=== PATIENT | male | born 1990 | race Caucasian/White ===

== ENCOUNTER 2018-04-19 19:50 | Inpatient (IN) | payer MEDICAID, OTHER ==
[~2018-04-19] VITALS: Ht 188 cm; Wt 101.6 kg
[2018-04-19] MEDS ORDERED: HYDROXYZINE HCL50 MG PO (20:07)
--- NOTE | 2018-04-19 22:29 | NUR ---
BROUGHT PT OVER ON STRETCHER FROM ED. PT IS APPROPRIATE AND DOES NOT APPEAR TO BE IN DISTRESS. HE RATES PAIN AT 6/10. RR IS EVEN AND NONLABORED. ORIENTED PT AND CORRECTIONAL OFFICERS TO THE ROOM. CALL LIGHT IS CLOSE.
--- NOTE | 2018-04-19 22:38 | NUR ---
VITALS DONE AND CHARTED. HELPED PT GET A GOWN ON. BEDSIDE TABLE AND CALL LIGHT IN REACH.
--- NOTE | 2018-04-19 23:15 | NUR ---
ADMISSION HX AND ASSESSMENT COMPLETE. PT IS RESTING IN BED AND STATES PAIN IS BETTER NOW. HE DENIES NAUSEA. IV FLUIDS ARE INFUSING AND ABX STARTED IN ED ARE COMPLETE. PT DENIES NEEDS AT THIS TIME. 2 SUPERVISOR LENS GENERATING ARE IN THE ROOM WITH PT AND CALL LIGHT IS CLOSE.
--- NOTE | 2018-04-20 01:05 | NUR ---
PT IS RESTING WITH EYES CLOSED, RR IS EVEN AND NONLABORED. CALL LIGHT IS CLOSE AND 2 CORRECTIONAL OFFICERS ARE IN THE ROOM.
--- NOTE | 2018-04-20 03:09 | NUR ---
VITALS AND I&OS DONE AND CHARTED. INFORMED RN CHRISTOS OF TEMP 100.9 PT NEEDS NOTHING AT THIS TIME.
--- NOTE | 2018-04-20 03:10 | NUR ---
IN ROOM TO ASSESS PT AND ADMINISTER MEDICATIONS. HE REPORT PAIN AT 5/10 AT THIS TIME. IV MORPHINE ADMINISTER. STARTED PRE PROCEDURE CHECKLIST. PT DENIES NEEDS AT THIS TIME. CALL LIGHT IS WITHIN REACH AND 2 CORRECTIONAL OFFICERS ARE IN THE ROOM.
--- NOTE | 2018-04-20 04:29 | NUR ---
PT IS AWAKE IN BED. HE REPORTS PAIN HAS IMPROVED BUT HE STILL HAS SHARP PAINS THAT COME AND GO. HE DENIES FURTHER NEEDS AT THIS TIME. CALL LIGHT IS CLOSE AND 2 CORRECTIONAL OFFICERS ARE IN THE ROOM.
--- NOTE | 2018-04-20 06:38 | NUR ---
SCD'S PUT ON. SWABS GIVEN. PT NEEDS NOTHING MORE AT THIS TIME.
--- NOTE | 2018-04-20 07:02 | NUR ---
ABX INFUSING, PT DENIES FURTHER NEEDS. CALL LIGHT IS CLOSE.
--- NOTE | 2018-04-20 07:38 | NUR ---
PT AWAKE, ALERT AND ORIENTED X3. PT REPORTS PAIN IS IMPROVED IN ABD. TWO CORRECTIONAL OFFICERS IN ROOM. PERSONAL SUPPLIES AND CALL LIGHT WITHIN REACH. NO NEEDS AT THIS TIME.
--- NOTE | 2018-04-20 08:03 | NUR ---
FAXED CLINICALS TO [facility] [phone]. FAX CONFIRMATION RECEIVED 04/20/18 0746AM.
--- NOTE | 2018-04-20 09:30 | NUR ---
PT LEFT UNIT TO SURGERY
--- NOTE | 2018-04-20 12:33 | NUR ---
04/20/18 Venu3 Monik Rangel 1221- PT ARRIVES TO PACU NONAROUSABLE TO NOXIOUS STIMULI. OPA IN PLACE. RESP EVEN AND UNLABORED. OXYGEN SAT 100% ON 10L VIA MASK. 1223- OXYGEN TURNED DOWN TO 6L VIA MASK. OXYGEN SAT 100% ON THIS. RESP EVEN AND UNLABORED. 1228- PT IS MORE AROUSABLE AND TRYING TO TAKE OPA OUT. OPA REMOVED. PT INSTANTLY BACK TO SLEEP. RESP EVEN AND UNLABORED. OXYGEN SAT 100% ON 6L VIA MASK. 1229- PT'S HAND CUFFS REPLACED BY GUARDS X2. CMS INTACT. 1233- STATLOCK PLACED TO PT'S RIGHT LEG TO SECURE HUANG.
--- NOTE | 2018-04-20 12:50 | NUR ---
PT BACK FROM SURGERY. PT AWAKE, ALERT AND ORIENTED X3. PT REPORTING UNCONTROLLED PAIN, LEVEL OF 8/10 ABD PAIN. PT'S VS TAKEN AND ARE STABLE. PT IS ON RA, RESP EVEN AND NON LABORED, OXYGEN SATURATION LEVEL OF 96% AT THIS TIME. TWO CORRECTIONAL OFFICERS IN ROOM WITH PT. ABD INCISIONS X3, COVERED AND DRESSING(S) ARE ALL CDI. ICE OVER INCISIONS. IV FLUIDS STARTED PER DOC ORDER. CLEAR LIQUIDS STARTED; PT TOLERATING WELL. HUANG INTACT, PATENT AND DRAINING APPROPRIATELY, CLR YELLOW URINE. PERSONAL SUPPLIES AND CALL LIGHT WITHIN REACH OF PT. NO NEEDS AT THIS TIME.
--- NOTE | 2018-04-20 13:07 | NUR ---
PT HAS GONE TO SURGERY-LAP APPY. EOCI GUARD IN RM, OTHER GUARD WITH PT TO SURGERY. WILL FOLLOW NEEDED
--- NOTE | 2018-04-20 13:45 | NUR ---
PT RESTING, EYES CLOSED, RESP EVEN AND NON LABORED. PT REPORTS PAIN IMPROVIDED IN ABD, 5/10 LEVEL. PT IS ON RA, 02 SAT LEVEL OF 95%. ABD INCISION CDI. PERSONAL SUPPLIES AND CALL LIGHT WITHIN REACH. NO NEEDS AT THIS TIME. VS STABLE. PERSONAL SUPPLIES AND CALL LIGHT WITHIN REACH.
[2018-04-20] MEDS ORDERED: BUSPIRONE HCL10 MG PO (14:07)
[2018-04-20] MEDS ORDERED: HYDROXYZINE HCL50 MG PO (14:09)
[2018-04-20] MEDS ORDERED: ZYRTEC10 MG PO (14:09)
[2018-04-20] MEDS ORDERED: FLUTICASONE-SA1 EACH INH (14:11)
[2018-04-20] MEDS ORDERED: NAPROSYN500 MG PO (14:11)
--- NOTE | 2018-04-20 14:12 | NUR ---
MED REC COMPLETE
--- NOTE | 2018-04-20 16:19 | NUR ---
Pt awake, sitting semi fowlers in bed. Pt reporting increased abd pain; Admin dilaudid 0.5mg IVP at this time. Ice to abd refreshed. Two correctional officers at bedside with pt. Pt resp even and non labored. Oxygen sat level of 100% on RA. Personal supplies and call light within reach of pt.
--- NOTE | 2018-04-20 18:01 | NUR ---
PT A&OX3. RA. DILAUDID PRN. SAL. D5LR@ 100ML/HR. IV ABX, VS STABLE. 1PA TO BR.
--- NOTE | 2018-04-20 19:09 | NUR ---
IN ROOM FOR REPORT, PT IS AWAKE IN BED AND FEELING NAUSEOUS. PHENERGAN ADMINISTERED AND PT DENIES FURTHER NEEDS. CALL LIGHT IS CLOSE AND 2 CO'S ARE IN THE ROOM.
--- NOTE | 2018-04-20 19:18 | NUR ---
PHENERGAN 12.5MG IVP ADMIN FOR C/O NAUSEA NOT RELIEVED BY ZOFRAN IVP.
--- NOTE | 2018-04-20 20:16 | NUR ---
ASSESSED PT AND ADMINISTERED MEDICATIONS. PT REPORTS PAIN 6/10 AT THIS TIME. HE DID NOT WANT TO TAKE THE BUSPAR BECAUSE HE SAYS IT CAUSES NAUSEA. ABD DRESSINGS ARE CDI WITH SOME SHADOWING ON THE INFERIOR END OF THE MIDLINE INCISION DRESSING. HE HAS FRESH WATER AT BEDSIDE AND DENIES FURTHER NEEDS. CALL LIGHT IS CLOSE AND 2 CORRECTIONAL OFFICERS ARE AT BEDSIDE.
--- NOTE | 2018-04-20 21:21 | NUR ---
VITALS AND I&OS DONE AND CHARTED. FRESH WATER GIVEN. COFFEE GIVEN TO ONE GUARD IN THE ROOM. INFORMED RN CHRISTOS OF TEMP. 100.2 PT NEEDS NOTHING AT THIS TIME.
--- NOTE | 2018-04-20 21:34 | NUR ---
ADMINISTERED NORCO AND IV ABX. FRESH ICEPACK IN PLACE. PT DENIES FURTHER NEEDS AT THIS TIME. CALL LIGHT IS WITHIN REACH.
--- NOTE | 2018-04-20 22:42 | NUR ---
PT STOOD BY SIDE OF BED AND IS BACK IN BED AT THIS TIME. HE DENIES FURTHER NEEDS. CALL LIGHT IS WITHIN REACH.
--- NOTE | 2018-04-20 23:34 | NUR ---
PT RATES PAIN AT 6/10 AT THIS TIME, ADMINISTERED DILAUDID. HE DENIES FURTHER NEEDS. CALL LIGHT IS CLOSE.
--- NOTE | 2018-04-21 00:51 | NUR ---
TAKING OVER CARE OF PT AT THIS TIME, PT AWAKE, C/O MILD ABD PAIN, DENIES NEED FOR PAIN MED AT THIS TIME. ABD DRESSING AND 2 LAP SITES INTACT, ABD SLIGHTLY DISTENDED, DENIES PASSING GAS. F/C PATENT. IVF INFUSING W/O PROBLEMS. 4 PO[address] METAL SHACKLES IN PLACE, 2 EOCI GUARDS IN ROOM.
--- NOTE | 2018-04-21 01:57 | NUR ---
MEDICATED WTIH 1MG IV DIALUDID PER 09/27 ABD PAIN.
--- NOTE | 2018-04-21 03:58 | NUR ---
medicated with 2 Hettick c/o 08/28 abd pain. Abd dressing with light shadowing intact. denies passing gas. Will get up to edgge of bed and walk in room if pt tolerates it. wearing 4point shackles, 2 EOCI guards in room
--- NOTE | 2018-04-21 04:44 | NUR ---
PT STOOD EDGE OF BED AND WALKED TO BR, BACK TO BED, TOLERATED FAIR. FAIR PAIN RELIEF STATED FROM PO MEDS GIVEN EARLIER. BACK TO BED, IVF INFUSING W/O PROBLEMS, NOT PASSING GAS YET
--- NOTE | 2018-04-21 04:49 | NUR ---
PT STOOD EDGE OF BED AND WALKED TO BR, BACK TO BED, TOLERATED FAIR. FAIR PAIN RELIEF STATED FROM PO MEDS GIVEN EARLIER. BACK TO BED, IVF INFUSING W/O PROBLEMS, ABD DRESSING IN PLACE, ABD TENDER,FIRM AT LOWER ABD, NOT PASSING GAS YET. HAS BEEN MEDICATED WITH DILAUDID AND NORCO PER ABD PAIN WITH GOOD TO FAIR PAIN RELIEF. ON ROOM AIR. TOLERATING CLEAR FLUIDS WELL, NO N/V. F/C PATENT, DRAINING LARGE AMOUNTS OF CLEAR YELLOW URINE, WEARING 4 POINT SHACKLES, 2 EOCI GUARDS IN ROOM
--- NOTE | 2018-04-21 05:57 | NUR ---
MEDICATED WTIH DILAUDID 1MG IV C/O ABD PAIN, DRESSING INTACT, NOT PASSING GAS YET. AWAKE, WATCHING TV, IVF INFUSING, NO C/O ADVERSE REACTION TO ABX. IS AT BEDSIDE. F/C PATENT, DRAINING LARGE AMOUNTS OF CLEAR URINE. WATCHING TV, [address], ABLE TO MOVE ALL EXTREMITIES . 2 EOCI GUARDS AT BEDSIDE
--- NOTE | 2018-04-21 06:39 | OR ---
[facility] [address] [place], [place] [address] Signed DATE OF OPERATION: 04/20/2018 SURGEON: Jo Eagle MD PREOPERATIVE DIAGNOSIS: Acute appendicitis. POSTOPERATIVE DIAGNOSIS: Acute perforated retrocecal appendicitis. PROCEDURE: Laparoscopic converted to open appendectomy. ESTIMATED BLOOD LOSS: Minimal. FINDINGS: Nicholas had acutely inflamed and perforated appendix. It was retrocecal, curving posteriorly and laterally. It was densely adherent to the cecal wall and therefore could not be with our laparoscopic instruments. Consequently, he was converted to an open procedure. Even then it was difficult to separate the appendix from the cecum. It took very careful blunt dissection with the help of judicious cautery. INDICATIONS: Nicholas is a 27-year-old gentleman who is quite healthy from [facility] [place]. He has had six days of right lower quadrant abdominal pain. He said it has been getting worse. He has anorexia and nausea. His white count was borderline at 10.7. He is brought to the local emergency room for evaluation. He was tender with rebound in the right lower quadrant. He was tachycardic. Temperature was 100.9 degrees[address] He had a CT scan of abdomen and pelvis performed, and sure enough he has a 7 cm heterogeneous pericecal inflamed mass, also some fluid density. We could see the terminal ileum coming over top of that to the cecum itself. I was asked to admit him as a general surgeon on-call. He has been given cefepime and Flagyl, IV fluids, and pain control. I met with Nicholas early this morning and we had a long discussion regarding his current findings. We reviewed the location and function of the appendix. We discussed laparoscopic versus open appendectomy. Given his current findings, I had warned Nicholas that he might represent the 3% of patients who have to be converted to an open procedure. Given that, his increase of incisional hernia is higher, at least 3% if not higher than that. He also understands there are other risks including, but Electronically Signed By: JO EAGLE MD 04/21/18 0639 PATIENT NAME: NICHOLAS CHAND OPERATIVE REPORT DATE OF : [birth year] REPORT #: [id number] PHYSICIAN: OJ EAGLE MD PCP: PAOLA NAM MD REPORT IS CONFIDENTIAL AND NOT TO BE RELEASED WITHOUT AUTHORIZATION [facility] [address] [place] [id number] Signed not limited to bleeding, infection, scarring, change in contour of the skin, damage to bowel, appendiceal stump leak, postoperative intraabdominal abscess, incisional hernias and other unforeseen comorbidities. He had expressed understanding and wished to proceed. PROCEDURE NOTE: Nicholas was taken in the operating room and placed in the supine position under general endotracheal tube anesthesia. He was already on his preoperative antibiotics. He also had subcutaneous heparin on board. SCDs were utilized. We initially went to place a standard Emanuel catheter, but it would not pass through the prostate gland. We therefore switched to a standard Coude catheter and it went through quite nicely without any resistance, whatsoever. We had the return of very lightly pink mostly clear urine. He made good urine throughout the procedure. After this, he was prepped and draped in the usual sterile fashion. We placed our Alfredo trocar in the supraumbilical position under direct visualization without difficulty. We found that he had an inflammatory mass as expected in the right lower quadrant. I added the 5 mm suprapubic port and the 12 mm right subcostal port. We were able to sweep the omentum off the inflammatory mass. However, we found that his appendix was densely adherent in the retrocecal position to the cecum itself. Fortunately, he had a moderately mobile cecum. We then decided to convert to an open procedure. We used our laparoscopic suturing device to pass 0 Vicryl suture on either side of the fascia of the right subcostal trocar site. This was tied down to close this fascia primarily. After this, the gas was allowed to escape and we removed the other two trocars. We extended our supraumbilical incision around the right side of his umbilicus and down the midline. It was just with my hand. We were then able to add our Hdez retractors and because the cecum was moderately mobile, we brought that up in the wound as we pushed the abdominal wall down. On inspection, it took me a few minutes then to carefully and bluntly with my fingers dissect the appendix loose from the retrocecal position with the help of the cautery. He had a couple of small bleeders, which we were able to over-sew with 0 Vicryl sutures. His inflammatory mass involved the base of the cecum as well. We had then cut a large hole into the base of the cecum. We went ahead and secured the appendix at the base of the cecum with an 0 Vicryl tie. The appendix was sharply divided from the cecum with Metzenbaum scissors. We then over sewed the appendiceal stump with interrupted simple 0 Vicryl sutures, which gave excellent coverage. After this, the area was copiously irrigated and suctioned out until clear. There was no specific abscess cavity. Therefore, no drain was left in place. We returned the cecum to its position and we returned the omentum over top of this area. The midline fascia was closed with interrupted [id number] #1 PDS sutures. Local anesthetic was copiously injected into all three incisions. The dermis of each incision was reapproximated with interrupted 3-0 subcuticular Monocryl sutures. The skin was reapproximated with marcos in all three positions. Dry gauze and tape Electronically Signed By: JO EAGLE MD 04/21/18 0639 PATIENT NAME: NICHOLAS CHAND OPERATIVE REPORT DATE OF : [birth year] REPORT #: [id number] PHYSICIAN: JO EAGLE MD PCP: PAOLA NAM MD REPORT IS CONFIDENTIAL AND NOT TO BE RELEASED WITHOUT AUTHORIZATION [facility] [address] [place] [phone] Signed were then applied. Nicholas's Emanuel catheter was left in place. He was awakened from his anesthesia, extubated in the OR, and taken to recovery room in stable condition. Jo Eagle MD ALB/MODL /[id number] cc: MD Jo Wheat MD Copies: PAOLA NAM MD, ANDREW L MD ~ Electronically Signed By: JO EAGLE MD 04/21/18 0639 PATIENT NAME: NICHOLAS CHAND OPERATIVE REPORT DATE OF : [birth year] REPORT #: [id number] PHYSICIAN: JO EAGLE MD PCP: PAOLA NAM MD REPORT IS CONFIDENTIAL AND NOT TO BE RELEASED WITHOUT AUTHORIZATION
--- NOTE | 2018-04-21 06:39 | CONS ---
[facility] [address] [place], [place] [address] Signed DATE OF CONSULTATION: 04/20/2018 CHIEF COMPLAINT: Right lower quadrant abdominal pain. HISTORY OF PRESENT ILLNESS: Nicholas is a 27-year-old gentleman, otherwise healthy from our [facility]. Unfortunately, he has had right lower quadrant pain now for 6 days. It is associated with nausea and anorexia. He had labs drawn at the alf and his white blood cell count was 10.7. He is certainly tender in the right lower quadrant. He was sent to the local emergency room for evaluation. A CT scan confirmed a 7 cm heterogeneous pericecal inflammatory mass containing some fluid. The appendix itself was not directly visualized. The terminal ileum goes over the mass on its way to the cecum. Consequently, I was asked to admit him as a general surgeon on-call. He has received antibiotics, pain medication, IV fluids. He said overall he feels a little better, but certainly no worse. PAST MEDICAL HISTORY: Insomnia. PAST SURGICAL HISTORY: None. SOCIAL HISTORY: He stopped smoking. He does not drink. Kin Nam is his primary care provider. He is single and has one daughter. FAMILY HISTORY: He said everyone in the family is healthy. REVIEW OF SYSTEMS: He said he is very healthy, although he has multiple tattoos. ALLERGIES: None. MEDICATIONS: Hydroxyzine. PHYSICAL EXAMINATION: VITAL SIGNS: His blood pressure is 123/56, heart rate is 101, respiratory rate 16, his temperature is 100.9, he is 98% on room air. He is 6 feet 2 inches at 224 kg. GENERAL: Nicholas is a 27-year-old gentleman lying supine in his hospital bed, Electronically Signed By: JO EAGLE MD 04/21/18 0639 PATIENT NAME: NICHOLAS CHAND CONSULTATION DATE OF : [birth year] REPORT #: [id number] PHYSICIAN: JO EAGLE MD PCP: KIN NAM MD REPORT IS CONFIDENTIAL AND NOT TO BE RELEASED WITHOUT AUTHORIZATION [facility] [address] [place], [place] [address] Signed watching TV. He has two officers in the room. He does not appear systemically ill or toxic, but he certainly has some pain in the right lower quadrant. LUNGS: Clear to auscultation bilaterally. HEART: Tachycardic. ABDOMEN: Soft and flat, but he has some fullness in that right lower quadrant and it is certainly tender and he has a little bit to rebound there. LABORATORY DATA: His white blood count is 10.7, hemoglobin 15, neutrophils 69. Electrolytes unremarkable. Albumin is 4.2. Liver function tests are negative. His urinalysis also negative. RADIOGRAPHIC STUDIES: A CT scan of abdomen and pelvis was reviewed, both the report and the images. He clearly has a 7 cm heterogeneous pericecal mass with some fluid and inflammatory changes. I can see the terminal ileum coming over the mass on its way to the cecum. ASSESSMENT AND PLAN: Nicholas is a 27-year-old gentleman who presents with acute appendicitis. He has been admitted, given IV fluids, antibiotics, and pain control. I reviewed all the findings with Nicholas. We have reviewed the differential diagnosis including appendicitis. We have reviewed laparoscopic versus open appendectomy. We have also reviewed the expected intraop and postop course. I suspect he will be with us a few days if not a week or more, on antibiotics following the surgery. He understands it is a very high likelihood that we will convert from laparoscopic to an open appendectomy based on his current situation. He understands there is risk including, but not limited to bleeding, infection, scarring, change in contour of the skin, damage to bowel, appendiceal stump leak, postoperative intraabdominal abscess, incisional hernias, and other unforeseen comorbidities. He has expressed understanding and wishes to proceed. We are going to be checking with our OR charge nurse and we will get him in as soon as we have nurses in the crew available. Jo Eagle MD [facility]/MODL /[id number] cc: Kin Nam MD Electronically Signed By: JO EAGLE MD 04/21/18 0639 PATIENT NAME: NICHOLAS CHAND CONSULTATION DATE OF : [birth year] REPORT #: [id number] PHYSICIAN: JO EAGLE MD PCP: KIN NAM MD REPORT IS CONFIDENTIAL AND NOT TO BE RELEASED WITHOUT AUTHORIZATION [address] [address] Signed Jo Eagle MD Copies: KIN NAM MD, ANDREW L MD ~ Electronically Signed By: JO EAGLE MD 04/21/18 0639 PATIENT NAME: MANNIEMURRAYERINDHIRAJ CONSULTATION DATE OF : [birth year] REPORT #: [id number] PHYSICIAN: JO EAGLE MD PCP: KIN NAM MD REPORT IS CONFIDENTIAL AND NOT TO BE RELEASED WITHOUT AUTHORIZATION
--- NOTE | 2018-04-21 06:55 | NUR ---
DR Nicholson in room assessing pt, verbal orders to decrease IVF to 75cc/hr, done. F/C dc'd at 0650, tip intact, removed 9cc water balloon, procedure explained, tolerated well. Still not passing gas, Up to edge of bed with EOCI guard's help, tolerated fair.
--- NOTE | 2018-04-21 08:00 | NUR ---
RECEIVED REPORT AT 0700, FOUND PT AWAKE IN BED WITH GUARDS PRESENT AT BEDSIDE. PT STATED THAT HE WAS GETTING SOMEWHAT PAINFUL BUT HAD NO OTHER CONCERNS AT THAT TIME.
--- NOTE | 2018-04-21 09:02 | NUR ---
UPDATED CLINICALS FAXED TO [facility] [phone]. FAX CONFIRMATION RECEIVED 04/21/18 825AM.
--- NOTE | 2018-04-21 11:11 | NUR ---
PT RESTING IN BED EOCI GUARDS AT . PT HAD OPEN APPY AND IS RECOVERING. HE WAS IN AND OUT WHILE I WAS IN -LONG ENOUGH TO STATE HIS PAIN WAS 5. I DID SHARE THIS WITH HIS RN CARLITOS. SHE STATED HE HAD JUST RECEIVED NORCO A FEW MINUTES AGO. GAVE A BLESSING, WILL FOLLOW NEEDED
--- NOTE | 2018-04-21 12:02 | NUR ---
PT IS AMBULATING HALLWAY WITH GUARDS AT THIS TIME. PAIN AT THIS TIME IS 7/10. 1MG IV DILAUDED WAS GIVEN FOR BREAKTHROUGH PAIN. WILL CONTINUE TO MONIOR. SPLINTING HIS ABD WAS EXPLAINED TO PT.
--- NOTE | 2018-04-21 14:00 | NUR ---
PT IS PASSING GAS. PT IS AMBULATING AGAIN. NO NAUSEA WITH FULL LIQUID DIET. PAIN IS CONTROLLED WITH ALL PRN PAIN MEDS. PT IS VOIDING WELL. NO NEW ISSUES NOTED SO FAR.
--- NOTE | 2018-04-21 16:25 | NUR ---
PT PROVIDED WITH 2 TAB NORCO FOR PAIN 09/27 TO ABD. PT PROVIDED WITH FRESH WATER. PT DENIES OTHER NEEDS AT THIS TIME.
--- NOTE | 2018-04-21 18:06 | NUR ---
PT IN SHOWER, EOCI CORRECTIONS OFFICERS ASSISTING. PROVIDED WITH FRESH GOWN.
--- NOTE | 2018-04-21 18:09 | NUR ---
PT ON ROOM AIR, O2 SATS >90%. IV FLUIDS INFUSING D5LR AT 75 ML/HR, IV FLAGYL. PAIN WELL CONTROLLED WITH NORCO 2 TABS Q4H, RECEIVED IV DILAUDID X1. PT AMBULATED IN SALDAÑA SVEREAL TIMES. PT TOLERATIGN FULL LIQUIR, ADVANCED TO REGULAR DIET, BOWEL TONES ACTIVE, REPORTS FLATUS. MIDLINE INCISION AND LAP SITES OPEN TO AIR.
--- NOTE | 2018-04-21 20:00 | NUR ---
PATIENT RESTING QUIETLY IN BED WATCHING TV WITH 2 EOCI OFFICERS AT BED SIDE. ICE WATER FILLED AND URINAL DUMPED. PATIENT DID NOT WANT ANYTHING TO EAT AT THIS TIME AND NO OTHER NEEDS AT THIS TIME.
--- NOTE | 2018-04-21 20:48 | NUR ---
PM ASSESSMENT DONE. PM MEDS GIVEN SCD'S IN PLACE. URINAL DUMPED.2 EOCI OFFICERS STILL AT BEDSIDE.
--- NOTE | 2018-04-21 21:00 | NUR ---
CHARGE NURSE ROUNDING NOTE: AWAKE WATCHING TV, NO C/O PAIN. WEARING 4POINT SHACKLES, 2 EOCI GUARDS IN ROOM. CALL LIGHT AND FLUIDS AT BEDSIDE
--- NOTE | 2018-04-21 23:00 | NUR ---
PATIENT'S PAIN STILL 4/10 AND HE IS COMFORTABLE AT THIS TIME WATCHING TV WITH TESSA WU.
--- NOTE | 2018-04-22 01:23 | NUR ---
PATIENT'S PAIN 5/10 NO, BUT HE IS NOT READY FOR PAIN MEDS YET. WILL CALL WHEN READY FOR PAIN MEDICATION.
--- NOTE | 2018-04-22 03:30 | NUR ---
PATIENT'S PAIN 5/10 , BUT DOES NOT WANT ANY MORE PAIN MEDS AT THIS TIME. STILL HAS 2 EOCI OFFICERS IN THE ROOM. SCD'S ON.
--- NOTE | 2018-04-22 05:45 | NUR ---
HERE VISITING PATIENT AND DOING HIS EXAM. PATIENT HAS HAD A GOOD NIGHT. PATIENT WILL BE DC'D BACK TO [facility] AFTER BREAKFAST.
--- NOTE | 2018-04-22 07:37 | NUR ---
RECIEVED REPORT FROM EQUIPMENT OPERATOR RN. PT IN BED WITH 2 GAURDS AT BEDSIDE. [address] ANTIBIOTIC STARTED. CALL LIGHT IN REACH. BREAKFAST ORDERED.
[2018-04-22] MEDS ORDERED: DOCUSATE SODIU100 MG PO (07:57)
[2018-04-22] MEDS ORDERED: NORCO 5-325 TA1 EACH PO (07:59)
[2018-04-22] MEDS ORDERED: AUGMENTIN 500-1 EACH PO (07:59)
[2018-04-22] MEDS ORDERED: FLAGYL500 MG PO (08:00)
--- NOTE | 2018-04-22 08:34 | NUR ---
ASSESSMENT DONE. BOWEL TONES ACTIVE. PT REPORTS PASSING FLATUS. NO BM. ATE REGULAR DIET WITHOUT N/V. TOLERATING WELL. INCISION IS WELL APPROXIMATED, DRY, OPEN TO AIR WITH SHIRLEY IN PLACE. PT REOPRTS 5/10 PAIN IN ABDOMEN. PRN MEDICAITON GIVEN. CALL LIGHT IN REACH
--- NOTE | 2018-04-22 11:04 | NUR ---
CALLED REPORT TO NURSE VICENTE AT [facility].
--- NOTE | 2018-04-24 08:55 | NUR ---
FAXED TO [facility] [phone]. SENT DISCHARGE SUMMARY/DISCHARGE REPORT. FAX CONFIRMATION RECEIVED 04/24/18 4983.
--- NOTE | 2018-04-25 08:12 | DS ---
[facility] [address], [place] [address] Signed ADMISSION DATE: 04/20/2018 DISCHARGE DATE: 04/22/2018 FINAL DIAGNOSIS: Acute perforated appendicitis. PROCEDURE: Laparoscopic converted to open appendectomy. HISTORY OF PRESENT ILLNESS: Nicholas is a 27-year-old gentleman from our [facility]. He had six days of increasing right lower quadrant abdominal pain. He was brought to the emergency room for evaluation. He was tachycardic with low-grade fever and tenderness and fullness in the right lower quadrant. White count was borderline at 10.7. CT scan of the abdomen and pelvis confirmed a 7 cm heterogeneous pericecal mass with some fluid and inflammatory changes. I was asked to admit him as a general surgeon on-call. HOSPITAL COURSE: Nicholas was admitted as above and kept n.p.o. and started on IV fluids, pain control, and his antibiotics. We took him to the operating room later that day for a laparoscopic converted to an open appendectomy. Fortunately, his perforated appendix was in the retrocecal position and covered by the omentum. Consequently, the inflammatory process was contained. He has done well both intra and postop. At this point, he is eating a regular diet. He is passing flatus and performing his activities of daily living. His pain is well controlled with p.o. pain medications. Due to his progress, we are going to be [facility] the [facility]. DISCHARGE PLANS AND MEDICATIONS: Nicholas be discharged back to the [facility]. He is welcome to continue a regular diet. He can perform his activities of daily living including walking up and down stairs and showering bathing as usual. He should not do any heavy pushing, pulling, or lifting over 20 pounds for one month and 50 pounds the second month. After two months, he has no restrictions on physical activity. He has already been on cefepime and Flagyl for three days here in the hospital. We are going to continue with Augmentin 500 mg one p.o. b.i.d. for four additional days. We will also give him Flagyl 500 mg p.o. t.i.d. for an additional 4 days. He did ask about a stool softener, so we gave him docusate 100 mg p.o. b.i.d. for a week with one refill. He is also written for Ethel 5/325 1-2 tablets p.o. q.4-6 hours p.r.n. pain, we will dispense 30 tablets with one refill. In addition, he can resume his usual chronic medications at the [facility]. We are going to leave his marcos in place. We will see him Electronically Signed By: JO EAGLE MD 04/25/18811 PATIENT NAME: NICHOLAS CHAND DISCHARGE SUMMARY DATE OF : [birth year] REPORT #: [id number] PHYSICIAN: JO EAGLE MD PCP: PAOLA NAM MD REPORT IS CONFIDENTIAL AND NOT TO BE RELEASED WITHOUT AUTHORIZATION [address] [address] Signed back in a week or 10 days to remove the marcos and assess his progress. I reviewed all this with Nicholas in detail. He has expressed understanding and agrees with above plan. MD JOSE Duvall/MODL /[id number] cc: MD Jo Wheat MD Copies: PAOLA NAM MD, ANDREW L MD ~ Electronically Signed By: JO EAGLE MD 04/25/18811 PATIENT NAME: MANNIESHAILESHDHIRAJ DISCHARGE SUMMARY DATE OF : [birth year] REPORT #: [id number] PHYSICIAN: JO EAGLE MD PCP: PAOLA NAM MD REPORT IS CONFIDENTIAL AND NOT TO BE RELEASED WITHOUT AUTHORIZATION
== END 2018-04-22 11:50 | disposition home or self-care (01) | DRG 340 ==
LOC: ED 19:50 → MS 19:52
PROVIDERS: ADMIT Colon & Rectal Surgery
PROC: 0DJD4ZZ Inspection of Lower Intestinal Tract, Percutaneous Endoscopic Approach (ICD-10-PCS; 2018-04-20)
PROC: 0DTJ0ZZ Resection of Appendix, Open Approach (ICD-10-PCS; principal; 2018-04-20 10:15)
DX: K35.32 Acute appendicitis with perforation, localized peritonitis, and gangrene, without abscess (principal); G47.00 Insomnia, unspecified; Z79.899 Other long term (current) drug therapy; Z53.31 Laparoscopic surgical procedure converted to open procedure; Z87.891 Personal history of nicotine dependence
CPT/HCPCS: 00840; 36415; 74177; 80048; 81001; 83735; 84100; 85025; 94640; 96361; 96374; 96375; 96376; 99285-25; G0378; J0330; J0692; J1100; J1170; J1644; J1885; J2270; J2405; J2550; J2704; J3010; J7030; J7060; J7120; Q9967